=== PATIENT | male | born 1975 | race Caucasian/White ===

== ENCOUNTER 2025-04-04 10:50 | Inpatient (IN) | payer MEDICAID ==
[~2025-04-04] VITALS: Ht 134.6 cm; Wt 99.8 kg
[2025-04-04 10:56] VITALS: O2SAT 97
[2025-04-04] MEDS: ONDANSETRON HCL 4MG/2ML INJ IV ONE (11:30)
[2025-04-04] MEDS: PANTOPRAZOLE SODIUM 40 MG/VIAL IV ONE (11:30)
[2025-04-04] MEDS: SODIUM CHLORIDE 0.9% 1,000 ML IV ONE (11:31)
[2025-04-04 11:37] LABS: HEMATOCRIT. 21.1 % (42.0-52.0); MEAN PLATELET VOLUME 8.0 fl (7.4-10.4); PLATELET 173 x1000/uL (130-400); RED BLOOD CELL COUNT 2.31 mill/uL (4.7-6.1); RED CELL DISTRIBUTION WIDTH 22.5 % (11.6-14.6)
[2025-04-04 11:46] LABS: INR 2.2
[2025-04-04 11:51] LABS: CREATININE 3.5 mg/dL (0.6-1.3); UREA NITROGEN BLOOD 86 mg/dL (9-23)
[2025-04-04 11:52] LABS: TROPONIN I HIGH SENSITIVITY 6 ng/L (3.0-53)
[2025-04-04 11:53] LABS: ASPARTATE AMINOTRANSFERASE 230 IU/L (<34); BILIRUBIN DIRECT 12.8 mg/dL (<=3.0); HEMOGLOBIN. 7.0 g/dL (14.0-18.0)
[2025-04-04 11:54] LABS: BILIRUBIN TOTAL 16.3 mg/dL (0.1-1.0); PROTEIN TOTAL 5.6 g/dL (6.0-8.3)
[2025-04-04 12:43] LABS: BAND% 6.0 % (1.0-6.0); EOSINOPHILS % MANUAL 2.0 % (0.0-5.0); LYMPHOCYTES % MANUAL 5.0 % (20.0-50.0); MONOCYTES % MANUAL 9.0 % (2.0-8.0); NEUTROPHILS % MANUAL 78.0 % (45.0-75.0); PLATELET ESTIMATE NORMAL
[2025-04-04] MEDS ORDERED: LORAZEPAM 0.5MG TABLET PO PRN (15:15)
[2025-04-04] MEDS ORDERED: ACETAMINOPHEN 325MG TABLET PO PRN (15:30)
[2025-04-04] MEDS ORDERED: DOCUSATE SODIUM 100MG CAPSULE PO PRN (15:30)
[2025-04-04] MEDS ORDERED: IPRATROPIUM/ALBUTEROL 0.5-3(2.5)MG/3ML NEB HHN PRN (15:30)
[2025-04-04] MEDS ORDERED: CLONIDINE 0.1MG TABLET PO PRN (15:30)
[2025-04-04] MEDS ORDERED: ONDANSETRON HCL 4MG/2ML INJ IV PRN (15:30)
[2025-04-04] MEDS ORDERED: HYDROCODONE/ACETAMINOPHEN 5/325MG TABLET PO PRN (15:30)
[2025-04-04 15:40] VITALS: BP 90/56; PULSE 90; RESP 18; TEMP 35.8; O2SAT 97
[2025-04-04] MEDS ORDERED: NALOXONE HCL 0.4MG/ML VIAL IV PRN (15:45)
[2025-04-04 15:54] VITALS: BP 90/56; PULSE 90; RESP 18; TEMP 35.862
[2025-04-04] MEDS ORDERED: MULT-1146 MT (16:14)
[2025-04-04] MEDS: PANTOPRAZOLE SODIUM 40 MG/VIAL IV SCH (16:21)
[2025-04-04] MEDS: SODIUM CHLORIDE 0.9% 1,000 ML IV SCH (16:21)
[2025-04-04] MEDS: THIAMINE HCL 100MG TABLET PO SCH (17:15)
[2025-04-04] MEDS: MULTIVITAMINS,THER W-MINERALS TABLET PO SCH (17:15)
[2025-04-04 18:09] LABS: FOLIC ACID (FOLATE) SERUM 5.37 ng/mL (>5.38)
[2025-04-04 18:12] LABS: VITAMIN B12 SERUM > 2000 pg/mL (211-911)
[2025-04-04 18:37] LABS: HEPATITIS C AB NON REACTIVE (Neg) (Negative)
[2025-04-04 20:00] VITALS: BP 98/63; PULSE 87; RESP 18; TEMP 36.4; O2SAT 99
[2025-04-04] MEDS: CHLORDIAZEPOXIDE 25MG CAPSULE PO SCH (21:15)
[2025-04-04] MEDS ORDERED: CHLORDIAZEPOXIDE 25MG CAPSULE PO SCH (22:00)
[2025-04-04 22:07] LABS: TROPONIN I HIGH SENSITIVITY 4 ng/L (3.0-53)
[2025-04-05] VITALS (11 sets, daily range): BP systolic 95–138; BP diastolic 48–86; PULSE 76–95; RESP 18–20; TEMP 36.114–37; O2SAT 93–100
[2025-04-05 09:05] LABS: CLARITY URINE CLOUDY (CLEAR); COLOR URINE DARK YELLOW (YELLOW); GLUCOSE URINE NEGATIVE (NEGATIVE); KETONES URINE NEGATIVE (NEGATIVE); LEUKOCYTE ESTERASE URINE TRACE (NEGATIVE); NITRITE URINE NEGATIVE (NEGATIVE); OCCULT BLOOD URINE NEGATIVE (NEGATIVE); PH URINE 5.5 (4.5-8.0); PROTEIN URINE NEGATIVE (NEGATIVE); SPECIFIC GRAVITY URINE 1.016 (1.005-1.030); UROBILINOGEN URINE 1.0 E.U./dL (0.2-1.0)
[2025-04-05] MEDS: FOLIC ACID 1MG TABLET PO SCH (09:22)
[2025-04-05 09:43] LABS: SQUAMOUS EPITHELIAL CELL URINE 1+ /lpf (RARE/1+)
[2025-04-05] MEDS ORDERED: PATIENT'S OWN MEDICATION IV SCH (09:45)
[2025-04-05 09:46] LABS: RBC URINE 0-2 /hpf (0-2); WBC URINE 0-2 /hpf (0-2)
[2025-04-05 09:55] LABS: BACTERIA URINE TRACE; HYALINE CASTS URINE 0-5 /lpf
[2025-04-05 10:26] LABS: *AMPHETAMINES SCREEN URINE NEGATIVE (NEGATIVE); *BARBITURATES SCREEN URINE NEGATIVE (NEGATIVE); *BENZODIAZEPINES SCREEN URINE NEGATIVE (NEGATIVE); *COCAINE SCREEN URINE NEGATIVE (NEGATIVE); METHADONE URINE SCREEN NEGATIVE (NEGATIVE); OPIATES URINE SCREEN NEGATIVE (NEGATIVE); PHENCYCLIDINE URINE SCREEN NEGATIVE (NEGATIVE)
[2025-04-05 10:27] LABS: CANNABINOID URINE SCREEN NEGATIVE (NEGATIVE); ECSTASY MDMA SCREEN URINE NEGATIVE (NEGATIVE)
[2025-04-05 10:33] LABS: OSMOLALITY URINE 370 mOsm/kg (500-850)
[2025-04-05 10:38] LABS: SODIUM URINE RANDOM < 10 mEq/L
[2025-04-05] MEDS: IRON SUCROSE COMPLEX 100 MG/5 ML ML IV SCH (10:46)
[2025-04-05 13:20] LABS: MEAN PLATELET VOLUME 7.9 fl (7.4-10.4); PLATELET 161 x1000/uL (130-400); RED BLOOD CELL COUNT 2.28 mill/uL (4.7-6.1); RED CELL DISTRIBUTION WIDTH 22.4 % (11.6-14.6)
[2025-04-05] MEDS: PHYTONADIONE 10 MG in DEXTROSE 5% WATER 49 ML IV NR (13:26)
[2025-04-05 13:27] LABS: CREATININE 3.7 mg/dL (0.6-1.3); UREA NITROGEN BLOOD 96.0 mg/dL (9-23)
[2025-04-05 13:37] LABS: HEMATOCRIT. 20.5 % (42.0-52.0); HEMOGLOBIN. 6.8 g/dL (14.0-18.0)
[2025-04-05] MEDS: LACTULOSE 20G/30ML UDC PO SCH (18:28)
[2025-04-05] MEDS: RIFAXIMIN 550 MG TABLET PO SCH (21:04)
[2025-04-05 23:25] LABS: BAND% 4.0 % (1.0-6.0); EOSINOPHILS % MANUAL 3.0 % (0.0-5.0); LYMPHOCYTES % MANUAL 5.0 % (20.0-50.0); MONOCYTES % MANUAL 16.0 % (2.0-8.0); NEUTROPHILS % MANUAL 72.0 % (45.0-75.0); NUCLEATED RED BLOOD CELLS 1 /100 WBC; PLATELET ESTIMATE NORMAL
[2025-04-06] VITALS (17 sets, daily range): BP systolic 92–130; BP diastolic 51–74; PULSE 50–86; RESP 16–20; TEMP 35.89176–37.2; O2SAT 95–98
[2025-04-06] MEDS: OCTREOTIDE 1,000 MCG in SODIUM CHLORIDE 0.9% 98 ML IV SCH (00:28)
[2025-04-06 03:02] LABS: HEMATOCRIT. 23.7 % (42.0-52.0); HEMOGLOBIN. 7.7 g/dL (14.0-18.0); MEAN PLATELET VOLUME 8.2 fl (7.4-10.4); PLATELET 152 x1000/uL (130-400); RED BLOOD CELL COUNT 2.64 mill/uL (4.7-6.1); RED CELL DISTRIBUTION WIDTH 20.8 % (11.6-14.6)
[2025-04-06 03:13] LABS: CREATININE 3.9 mg/dL (0.6-1.3); UREA NITROGEN BLOOD 93 mg/dL (9-23)
[2025-04-06 03:15] LABS: ASPARTATE AMINOTRANSFERASE 196 IU/L (<34); BILIRUBIN DIRECT 12.6 mg/dL (<=3.0); BILIRUBIN TOTAL 18.9 mg/dL (0.1-1.0)
[2025-04-06 03:16] LABS: INR 2.0; PROTEIN TOTAL 5.4 g/dL (6.0-8.3)
[2025-04-06 04:19] LABS: LYMPHOCYTES % MANUAL 4.0 % (20.0-50.0); MONOCYTES % MANUAL 13.0 % (2.0-8.0); NEUTROPHILS % MANUAL 83.0 % (45.0-75.0); PLATELET ESTIMATE NORMAL
[2025-04-06] MEDS: DEMECLOCYCLINE HCL 300MG TABLET PO SCH (14:09)
[2025-04-06] MEDS: PHYTONADIONE 10 MG in DEXTROSE 5% WATER 49 ML IV NR (21:05)
[2025-04-07] VITALS: BP 106/57; PULSE 80; RESP 18; TEMP 36.3; O2SAT 98
[2025-04-07 04:00] VITALS: BP 101/52; PULSE 87; RESP 18; TEMP 36.4; O2SAT 95
[2025-04-07 05:27] LABS: CREATININE 3.4 mg/dL (0.6-1.3); INR 1.7; UREA NITROGEN BLOOD 87.0 mg/dL (9-23)
[2025-04-07 05:29] LABS: BILIRUBIN TOTAL 19.3 mg/dL (0.1-1.0)
[2025-04-07 06:29] LABS: HEMATOCRIT. 24.8 % (42.0-52.0); HEMOGLOBIN. 8.3 g/dL (14.0-18.0); MEAN PLATELET VOLUME 8.6 fl (7.4-10.4); PLATELET 150 x1000/uL (130-400); RED BLOOD CELL COUNT 2.76 mill/uL (4.7-6.1); RED CELL DISTRIBUTION WIDTH 21.3 % (11.6-14.6)
[2025-04-07 08:00] VITALS: BP 97/59; PULSE 85; RESP 18; TEMP 36.2; O2SAT 95
[2025-04-07 12:00] VITALS: BP 100/56; PULSE 94; RESP 16; TEMP 36.1; O2SAT 96
[2025-04-07] MEDS: PIPERACILLIN/TAZO 3.375G/50ML 50 ML IV SCH (12:45)
[2025-04-07] MEDS: VANCOMYCIN 1.5GM PMX (XELLIA) 300 ML IV NR (14:51)
[2025-04-07 16:00] VITALS: BP 98/56; PULSE 98; RESP 17; TEMP 36.3; O2SAT 98
[2025-04-07 17:13] LABS: BAND% 1.0 % (1.0-6.0); EOSINOPHILS % MANUAL 1.0 % (0.0-5.0); LYMPHOCYTES % MANUAL 7.0 % (20.0-50.0); MONOCYTES % MANUAL 8.0 % (2.0-8.0); NEUTROPHILS % MANUAL 83.0 % (45.0-75.0); PLATELET ESTIMATE NORMAL
[2025-04-07 20:00] VITALS: BP 98/55; PULSE 88; RESP 19; TEMP 36.6; O2SAT 96
[2025-04-07 23:33] LABS: CLARITY URINE CLOUDY (CLEAR); COLOR URINE DARK YELLOW (YELLOW); GLUCOSE URINE NEGATIVE (NEGATIVE); KETONES URINE NEGATIVE (NEGATIVE); LEUKOCYTE ESTERASE URINE NEGATIVE (NEGATIVE); NITRITE URINE NEGATIVE (NEGATIVE); OCCULT BLOOD URINE NEGATIVE (NEGATIVE); PH URINE 5.5 (4.5-8.0); PROTEIN URINE TRACE (NEGATIVE); SPECIFIC GRAVITY URINE 1.015 (1.005-1.030); UROBILINOGEN URINE 0.2 E.U./dL (0.2-1.0)
[2025-04-08] VITALS: BP 98/50; PULSE 88; RESP 19; TEMP 36.4; O2SAT 95
[2025-04-08 02:58] LABS: SQUAMOUS EPITHELIAL CELL URINE FEW /lpf (RARE/1+)
[2025-04-08 03:00] LABS: BACTERIA URINE NONE SEEN; RBC URINE NONE SEEN /hpf (0-2); WBC URINE 0-2 /hpf (0-2)
[2025-04-08 04:00] VITALS: BP 97/51; PULSE 90; RESP 19; TEMP 36.6; O2SAT 98
[2025-04-08 06:05] LABS: INR 2.1
[2025-04-08 06:13] LABS: CREATININE 3.6 mg/dL (0.6-1.3); UREA NITROGEN BLOOD 94 mg/dL (9-23)
[2025-04-08 06:15] LABS: ASPARTATE AMINOTRANSFERASE 172 IU/L (<34); BILIRUBIN TOTAL 17.7 mg/dL (0.1-1.0); PROTEIN TOTAL 5.6 g/dL (6.0-8.3)
[2025-04-08 06:36] LABS: HEMATOCRIT. 23.7 % (42.0-52.0); HEMOGLOBIN. 7.8 g/dL (14.0-18.0); MEAN PLATELET VOLUME 8.6 fl (7.4-10.4); PLATELET 136 x1000/uL (130-400); RED BLOOD CELL COUNT 2.65 mill/uL (4.7-6.1); RED CELL DISTRIBUTION WIDTH 21.9 % (11.6-14.6)
[2025-04-08 08:00] VITALS: BP 95/50; PULSE 87; RESP 17; TEMP 36.4; O2SAT 100
[2025-04-08 11:11] LABS: BG BASE EXCESS -5.4 mmol/L (-2.0-3.0); BG CARBOXYHEMOGLOBIN 1.8 % (0.5-1.5); BG DEOXYHEMOGLOBIN 6.1 % (0.0-5.0); BG FRACTION INSPIRED OXYGEN 21; BG HCO3 ACT 19.1 mmol/L (21.0-28.0); BG METHEMOGLOBIN 0.3 % (0.5-1.5); BG OXYGEN SATURATION 93.8 % (94.0-98.0); BG OXYHEMOGLOBIN 91.8 % (94.0-98.0); BG PCO2 33.3 mmHg (35.0-48.0); BG PH 7.377 (7.350-7.450); BG PO2 74.8 mmHg (83.0-108.0); BG SAMPLE SITE RIGHT RADIAL; BG TOTAL HEMOGLOBIN 9.1 g/dL (13.5-17.5); BG VENT MODE ROOM AIR
[2025-04-08 12:00] VITALS: BP 97/57; PULSE 91; RESP 18; TEMP 36.4; O2SAT 100
[2025-04-08 13:54] LABS: BAND% 20.0 % (1.0-6.0); EOSINOPHILS % MANUAL 1.0 % (0.0-5.0); LYMPHOCYTES % MANUAL 1.0 % (20.0-50.0); MONOCYTES % MANUAL 5.0 % (2.0-8.0); NEUTROPHILS % MANUAL 73.0 % (45.0-75.0); PLATELET ESTIMATE NORMAL
[2025-04-08 16:00] VITALS: BP 97/49; PULSE 90; RESP 18; TEMP 36.4; O2SAT 98
[2025-04-08 18:07] LABS: PLATELET 132 x1000/uL (130-400); RED BLOOD CELL COUNT 2.88 mill/uL (4.7-6.1); RED CELL DISTRIBUTION WIDTH 21.4 % (11.6-14.6)
[2025-04-08 18:16] LABS: CREATININE 3.9 mg/dL (0.6-1.3)
[2025-04-08 18:17] LABS: UREA NITROGEN BLOOD 94.0 mg/dL (9-23)
[2025-04-08 20:47] VITALS: BP 98/53; PULSE 82; RESP 20; TEMP 36.6; O2SAT 96
[2025-04-08] MEDS: ACETAMINOPHEN 325MG TABLET PO PRN (21:12)
[2025-04-08] MEDS: SODIUM CHLORIDE 3% 500 ML IV SCH (21:13)
[2025-04-09] VITALS (8 sets, daily range): BP systolic 94–108; BP diastolic 46–68; PULSE 80–98; RESP 16–23; TEMP 35.9–37; O2SAT 86–100
[2025-04-09 08:55] LABS: HEMATOCRIT. 26.0 % (42.0-52.0); HEMOGLOBIN. 8.6 g/dL (14.0-18.0); MEAN PLATELET VOLUME 8.7 fl (7.4-10.4); PLATELET 136 x1000/uL (130-400); RED BLOOD CELL COUNT 2.87 mill/uL (4.7-6.1); RED CELL DISTRIBUTION WIDTH 22.3 % (11.6-14.6)
[2025-04-09 09:12] LABS: CREATININE 4.5 mg/dL (0.6-1.3)
[2025-04-09 09:24] LABS: UREA NITROGEN BLOOD 103.0 mg/dL (9-23)
[2025-04-09 13:40] LABS: BAND% 10.0 % (1.0-6.0); LYMPHOCYTES % MANUAL 1.0 % (20.0-50.0); METAMYELOCYTES % 1.0 % (0-0); MONOCYTES % MANUAL 6.0 % (2.0-8.0); NEUTROPHILS % MANUAL 82.0 % (45.0-75.0); NUCLEATED RED BLOOD CELLS 1 /100 WBC
[2025-04-09 13:42] LABS: PLATELET ESTIMATE NORMAL
[2025-04-09] MEDS: MEROPENEM 500MG/50ML 50 ML IV SCH (18:23)
[2025-04-09] MEDS: VANCOMYCIN 500MG/100ML IV SCH (22:00)
[2025-04-09 23:33] LABS: BG BASE EXCESS -6.2 mmol/L (-2.0-3.0); BG CARBOXYHEMOGLOBIN 2.3 % (0.5-1.5); BG DEOXYHEMOGLOBIN 8.7 % (0.0-5.0); BG FRACTION INSPIRED OXYGEN 21; BG HCO3 ACT 18.2 mmol/L (21.0-28.0); BG METHEMOGLOBIN 0.3 % (0.5-1.5); BG OXYGEN SATURATION 91.1 % (94.0-98.0); BG OXYHEMOGLOBIN 88.7 % (94.0-98.0); BG PCO2 32.1 mmHg (35.0-48.0); BG PH 7.372 (7.350-7.450); BG PO2 66.3 mmHg (83.0-108.0); BG SAMPLE SITE RIGHT RADIAL; BG TOTAL HEMOGLOBIN 9.6 g/dL (13.5-17.5); BG VENT MODE ROOM AIR
[2025-04-10] VITALS (12 sets, daily range): BP systolic 99–113; BP diastolic 56–63; PULSE 94–104; RESP 12–30; TEMP 35.8–36.6; O2SAT 94–100
[2025-04-10 08:40] LABS: UREA NITROGEN BLOOD 116.0 mg/dL (9-23)
[2025-04-10 08:41] LABS: CREATININE 5.5 mg/dL (0.6-1.3)
[2025-04-10 09:04] LABS: HEMATOCRIT. 27.4 % (42.0-52.0); HEMOGLOBIN. 9.0 g/dL (14.0-18.0); MEAN PLATELET VOLUME 8.8 fl (7.4-10.4); PLATELET 135 x1000/uL (130-400); RED BLOOD CELL COUNT 3.01 mill/uL (4.7-6.1); RED CELL DISTRIBUTION WIDTH 22.1 % (11.6-14.6)
[2025-04-10] MEDS: SODIUM CHLORIDE 0.9% 1,000 ML IV SCH (11:09)
[2025-04-10 16:35] LABS: LYMPHOCYTES % MANUAL 5.0 % (20.0-50.0); MONOCYTES % MANUAL 10.0 % (2.0-8.0); NEUTROPHILS % MANUAL 85.0 % (45.0-75.0); PLATELET ESTIMATE NORMAL
[2025-04-10] MEDS ORDERED: ACETAMINOPHEN 650MG SUPP PR PRN ×2 (22:15→22:30)
[2025-04-11] VITALS (58 sets, daily range): BP systolic 93–140; BP diastolic 18–79; PULSE 86–109; RESP 15–37; TEMP 36.2–36.7; O2SAT 93–99
[2025-04-11] MEDS: DEXTROSE 50% WATER 50ML SYRINGE IV PRN (05:40)
[2025-04-11 06:42] LABS: ASPARTATE AMINOTRANSFERASE 223 IU/L (<34)
[2025-04-11 06:43] LABS: BILIRUBIN TOTAL 21.8 mg/dL (0.1-1.0); PROTEIN TOTAL 5.5 g/dL (6.0-8.3)
[2025-04-11 06:49] LABS: HEMATOCRIT. 27.3 % (42.0-52.0); HEMOGLOBIN. 8.9 g/dL (14.0-18.0); MEAN PLATELET VOLUME 8.5 fl (7.4-10.4); PLATELET 102 x1000/uL (130-400); RED BLOOD CELL COUNT 2.98 mill/uL (4.7-6.1); RED CELL DISTRIBUTION WIDTH 22.3 % (11.6-14.6)
[2025-04-11 07:09] LABS: CREATININE 6.5 mg/dL (0.6-1.3); UREA NITROGEN BLOOD 134 mg/dL (9-23)
[2025-04-11] MEDS: BLOOD SUGAR DIAGNOSTIC STRIP TEST SCH (07:30)
[2025-04-11 08:43] LABS: INR 2.6
[2025-04-11] MEDS: SODIUM BICARBONATE 4.2% 2.5MEQ/5ML VIAL IV ONE (10:31)
[2025-04-11] MEDS: LIDOCAINE HCL 1% 10 MG/ML 10ML VIAL ONE (10:32)
[2025-04-11] MEDS: NOREPINEPHRINE 8MG/250ML PMX 250 ML IV PRN (11:56)
[2025-04-11 12:26] LABS: PROTEIN BODY FLUID < 2.0 gm/dL
[2025-04-11] MEDS: PHYTONADIONE 10MG/ML INJ SUBCUT SCH (13:10)
[2025-04-11] MEDS: SODIUM BICARBONATE 100 MEQ in SODIUM CHLORIDE 0.45% 900 ML IV SCH (13:10)
[2025-04-11] MEDS ORDERED: LIDOCAINE HCL 1% 10 MG/ML 10ML VIAL ONE (13:44)
[2025-04-11] MEDS: PHENYLEPHRINE 50MG/250ML PMX 250 ML IV PRN (16:03)
[2025-04-11 17:23] LABS: LYMPHOCYTES % MANUAL 6.0 % (20.0-50.0); METAMYELOCYTES % 2.0 % (0-0); MONOCYTES % MANUAL 12.0 % (2.0-8.0); MYELOCYTES % 2.0 % (0-0); NEUTROPHILS % MANUAL 78.0 % (45.0-75.0); PLATELET ESTIMATE SLIGHTLY DECREASED
[2025-04-11 22:30] LABS: PHOSPHORUS 12.2 mg/dL (2.5-4.9); TROPONIN I HIGH SENSITIVITY 207 ng/L (3.0-53)
[2025-04-11] MEDS: NOREPINEPHRINE 32 MG in DEXT 5% WATER 218 ML IV PRN (23:15)
[2025-04-12] VITALS (95 sets, daily range): BP systolic 67–109; BP diastolic 39–82; PULSE 77–99; RESP 20–53; TEMP 36.6–37.2; O2SAT 94–100
[2025-04-12 06:40] LABS: HEMATOCRIT. 26.7 % (42.0-52.0); HEMOGLOBIN. 8.4 g/dL (14.0-18.0); MEAN PLATELET VOLUME 9.0 fl (7.4-10.4); PLATELET 79 x1000/uL (130-400); RED BLOOD CELL COUNT 2.85 mill/uL (4.7-6.1); RED CELL DISTRIBUTION WIDTH 22.4 % (11.6-14.6)
[2025-04-12 06:53] LABS: ASPARTATE AMINOTRANSFERASE 365 IU/L (<34)
[2025-04-12 06:54] LABS: BILIRUBIN TOTAL 22.1 mg/dL (0.1-1.0)
[2025-04-12 07:10] LABS: CREATININE 7.5 mg/dL (0.6-1.3)
[2025-04-12 07:11] LABS: UREA NITROGEN BLOOD 138 mg/dL (9-23)
[2025-04-12 07:20] LABS: PROTEIN TOTAL 5.3 g/dL (6.0-8.3)
[2025-04-12 07:27] LABS: TROPONIN I HIGH SENSITIVITY 181 ng/L (3.0-53)
[2025-04-12] MEDS: LANTHANUM CARBONATE 500MG CHEW TABLET PO SCH (08:20)
[2025-04-12] MEDS: PHYTONADIONE 10 MG in DEXTROSE 5% WATER 50 ML IV SCH (09:43)
[2025-04-12 10:30] LABS: BG BASE EXCESS -11.3 mmol/L (-2.0-3.0); BG CARBOXYHEMOGLOBIN 1.6 % (0.5-1.5); BG DEOXYHEMOGLOBIN 6.5 % (0.0-5.0); BG FLOW(L/min) 3.50 L/min; BG FRACTION INSPIRED OXYGEN 34; BG HCO3 ACT 13.7 mmol/L (21.0-28.0); BG METHEMOGLOBIN 0.3 % (0.5-1.5); BG OXYGEN SATURATION 93.4 % (94.0-98.0); BG OXYHEMOGLOBIN 91.6 % (94.0-98.0); BG PCO2 27.5 mmHg (35.0-48.0); BG PH 7.314 (7.350-7.450); BG PO2 78.4 mmHg (83.0-108.0); BG SAMPLE SITE RIGHT RADIAL; BG TOTAL HEMOGLOBIN 9.3 g/dL (13.5-17.5); BG VENT MODE NASAL CANNULA
[2025-04-12 11:34] LABS: INR > 10.0
[2025-04-12 12:13] LABS: BAND% 6.0 % (1.0-6.0); LYMPHOCYTES % MANUAL 2.0 % (20.0-50.0); MONOCYTES % MANUAL 4.0 % (2.0-8.0); NEUTROPHILS % MANUAL 88.0 % (45.0-75.0); NUCLEATED RED BLOOD CELLS 4 /100 WBC
[2025-04-12 12:17] LABS: PLATELET ESTIMATE DECREASED
[2025-04-12] MEDS ORDERED: LACTULOSE ENEMA 1,000ML BOTTLE PR NR (12:30)
[2025-04-12] MEDS: MICAFUNGIN 100 MG in SODIUM CHLORIDE 0.9% 100 ML IV SCH (17:27)
[2025-04-12] MEDS ORDERED: VANCOMYCIN 500MG PREMIX 100 ML IV SCH (18:00)
[2025-04-12 20:21] LABS: TROPONIN I HIGH SENSITIVITY 96 ng/L (3.0-53)
[2025-04-12] MEDS: RIFAXIMIN 550 MG TABLET NG SCH (21:37)
[2025-04-13] VITALS (114 sets, daily range): BP systolic 69–176; BP diastolic 12–146; PULSE 77–113; RESP 18–33; TEMP 36.4–37.2; O2SAT 95–100
[2025-04-13] MEDS: MEROPENEM 500MG/50ML 50 ML IV SCH (05:16)
[2025-04-13 07:07] LABS: BILIRUBIN TOTAL 21.9 mg/dL (0.1-1.0)
[2025-04-13 07:32] LABS: HEMATOCRIT. 30.0 % (42.0-52.0); HEMOGLOBIN. 9.6 g/dL (14.0-18.0); RED BLOOD CELL COUNT 2.98 mill/uL (4.7-6.1); RED CELL DISTRIBUTION WIDTH 23.6 % (11.6-14.6)
[2025-04-13 07:44] LABS: CREATININE 7.2 mg/dL (0.6-1.3); UREA NITROGEN BLOOD 132.0 mg/dL (9-23)
[2025-04-13] MEDS: EPINEPHRINE 0.1MG/ML (1:10,000) 10ML SYR IV NR (07:45)
[2025-04-13] MEDS: PANTOPRAZOLE SODIUM 40 MG/VIAL IV SCH ×2 (08:24→21:10)
[2025-04-13] MEDS: DEXTROSE 50% WATER 50ML SYRINGE IV NR (08:44)
[2025-04-13] MEDS: SODIUM POLYSTYRENE SULFONATE 15 G/60 ML BOT NG NR (08:44)
[2025-04-13] MEDS: INSULIN REGULAR (HUMULIN R) 1000UNITS/10ML VIAL IV NR (08:45)
[2025-04-13 09:37] LABS: BG BASE EXCESS -15.7 mmol/L (-2.0-3.0); BG CARBOXYHEMOGLOBIN 1.7 % (0.5-1.5); BG DEOXYHEMOGLOBIN 4.7 % (0.0-5.0); BG FRACTION INSPIRED OXYGEN 80; BG HCO3 ACT 10.9 mmol/L (21.0-28.0); BG METHEMOGLOBIN 0.3 % (0.5-1.5); BG OXYGEN SATURATION 95.2 % (94.0-98.0); BG OXYHEMOGLOBIN 93.3 % (94.0-98.0); BG PCO2 28.4 mmHg (35.0-48.0); BG PEEP (cmH2O) 5.0 cmH2O; BG PH 7.201 (7.350-7.450); BG PO2 95.8 mmHg (83.0-108.0); BG SAMPLE SITE RIGHT RADIAL; BG TIDAL VOLUME(mL) 450.0 mL; BG TOTAL HEMOGLOBIN 9.3 g/dL (13.5-17.5); BG VENT MODE VENT - AC; BG VENT RATE 28.0 set
[2025-04-13] MEDS: SODIUM BICARBONATE 150 MEQ in DEXTROSE 5% WATER 850 ML IV SCH (11:43)
[2025-04-13] MEDS: SODIUM BICARBONATE 8.4% 50MEQ/50ML SYR IV SCH (12:04)
[2025-04-13 12:56] LABS: INR > 10.0
[2025-04-13] MEDS: LACTULOSE 20G/30ML UDC PO SCH (13:37)
[2025-04-13 14:03] LABS: BAND% 10.0 % (1.0-6.0); LYMPHOCYTES % MANUAL 2.0 % (20.0-50.0); METAMYELOCYTES % 1.0 % (0-0); MONOCYTES % MANUAL 9.0 % (2.0-8.0); MYELOCYTES % 1.0 % (0-0); NEUTROPHILS % MANUAL 77.0 % (45.0-75.0); NUCLEATED RED BLOOD CELLS 8 /100 WBC
[2025-04-13 14:06] LABS: PLATELET ESTIMATE DECREASED
[2025-04-13 14:09] LABS: MEAN PLATELET VOLUME 9.8 fl (7.4-10.4); PLATELET 81 x1000/uL (130-400)
[2025-04-13 17:49] LABS: BG BASE EXCESS -12.9 mmol/L (-2.0-3.0); BG CARBOXYHEMOGLOBIN 1.1 % (0.5-1.5); BG DEOXYHEMOGLOBIN 16.4 % (0.0-5.0); BG FRACTION INSPIRED OXYGEN 70; BG HCO3 ACT 12.1 mmol/L (21.0-28.0); BG METHEMOGLOBIN 0.3 % (0.5-1.5); BG OXYGEN SATURATION 83.4 % (94.0-98.0); BG OXYHEMOGLOBIN 82.2 % (94.0-98.0); BG PCO2 25.7 mmHg (35.0-48.0); BG PEEP (cmH2O) 5.0 cmH2O; BG PH 7.291 (7.350-7.450); BG PO2 59.2 mmHg (83.0-108.0); BG SAMPLE SITE RIGHT RADIAL; BG TIDAL VOLUME(mL) 450.0 mL; BG TOTAL HEMOGLOBIN 10.5 g/dL (13.5-17.5); BG VENT MODE VENT - AC; BG VENT RATE 32.0 set
[2025-04-13] MEDS: VANCOMYCIN 125MG/2.5ML ORAL SYR NG SCH (21:24)
[2025-04-14] VITALS (113 sets, daily range): BP systolic 82–115; BP diastolic 44–73; PULSE 81–118; RESP 23–36; TEMP 36.1–36.6; O2SAT 94–100
[2025-04-14] MEDS: VASOPRESSIN 20 UNIT in SODIUM CHLORIDE 0.9% 99 ML IV PRN (06:26)
[2025-04-14 08:21] LABS: RED BLOOD CELL COUNT 2.90 mill/uL (4.7-6.1); RED CELL DISTRIBUTION WIDTH 27.4 % (11.6-14.6)
[2025-04-14 08:47] LABS: BG BASE EXCESS -8.4 mmol/L (-2.0-3.0); BG CARBOXYHEMOGLOBIN 1.7 % (0.5-1.5); BG DEOXYHEMOGLOBIN 9.0 % (0.0-5.0); BG FRACTION INSPIRED OXYGEN 70; BG HCO3 ACT 14.9 mmol/L (21.0-28.0); BG METHEMOGLOBIN 0.1 % (0.5-1.5); BG OXYGEN SATURATION 90.8 % (94.0-98.0); BG OXYHEMOGLOBIN 89.2 % (94.0-98.0); BG PCO2 24.1 mmHg (35.0-48.0); BG PEEP (cmH2O) 5.0 cmH2O; BG PH 7.408 (7.350-7.450); BG PO2 72.6 mmHg (83.0-108.0); BG SAMPLE SITE RIGHT RADIAL; BG TIDAL VOLUME(mL) 450.0 mL; BG TOTAL HEMOGLOBIN 9.8 g/dL (13.5-17.5); BG VENT MODE VENT - AC; BG VENT RATE 32.0 set
[2025-04-14 08:49] LABS: CREATININE 7.3 mg/dL (0.6-1.3); UREA NITROGEN BLOOD > 150 mg/dL (9-23)
[2025-04-14 08:50] LABS: PHOSPHORUS 13.0 mg/dL (2.5-4.9)
[2025-04-14] MEDS: IPRATROPIUM/ALBUTEROL 0.5-3(2.5)MG/3ML NEB HHN PRN (09:09)
[2025-04-14] MEDS: LACTULOSE 20G/30ML UDC PO SCH (12:25)
[2025-04-14] MEDS: ACETAZOLAMIDE SODIUM 500MG/VIAL IV NR (12:26)
[2025-04-14 14:19] LABS: PLATELET 57 x1000/uL (130-400)
[2025-04-14] MEDS: FENTANYL 2500MCG/250ML PMX 250 ML IV PRN (21:21)
[2025-04-15] VITALS (116 sets, daily range): BP systolic 70–126; BP diastolic 30–88; PULSE 89–106; RESP 20–34; TEMP 36.2–36.6; O2SAT 92–100
[2025-04-15 10:12] LABS: BG BASE EXCESS -9.3 mmol/L (-2.0-3.0); BG CARBOXYHEMOGLOBIN 2.4 % (0.5-1.5); BG DEOXYHEMOGLOBIN 13.6 % (0.0-5.0); BG FRACTION INSPIRED OXYGEN 50; BG HCO3 ACT 14.8 mmol/L (21.0-28.0); BG METHEMOGLOBIN 0.4 % (0.5-1.5); BG OXYGEN SATURATION 86.0 % (94.0-98.0); BG OXYHEMOGLOBIN 83.6 % (94.0-98.0); BG PCO2 26.3 mmHg (35.0-48.0); BG PEEP (cmH2O) 5.0 cmH2O; BG PH 7.368 (7.350-7.450); BG PO2 64.2 mmHg (83.0-108.0); BG SAMPLE SITE LEFT RADIAL; BG TIDAL VOLUME(mL) 450.0 mL; BG TOTAL HEMOGLOBIN 8.9 g/dL (13.5-17.5); BG VENT MODE VENT - AC; BG VENT RATE 32.0 set
[2025-04-15] MEDS: LACTULOSE ENEMA 1,000ML BOTTLE PR NR (10:17)
[2025-04-15] MEDS: METOCLOPRAMIDE HCL 10MG/2ML VIAL IV SCH ×2 (10:18→17:35)
[2025-04-15 11:39] LABS: HEMATOCRIT. 25.5 % (42.0-52.0); HEMOGLOBIN. 8.1 g/dL (14.0-18.0); MEAN PLATELET VOLUME 10.4 fl (7.4-10.4); RED BLOOD CELL COUNT 2.72 mill/uL (4.7-6.1); RED CELL DISTRIBUTION WIDTH 23.9 % (11.6-14.6)
[2025-04-15 11:49] LABS: PLATELET 25 x1000/uL (130-400)
[2025-04-15 11:51] LABS: ASPARTATE AMINOTRANSFERASE 764 IU/L (<34); BILIRUBIN DIRECT 13.2 mg/dL (<=3.0); BILIRUBIN TOTAL 20.0 mg/dL (0.1-1.0)
[2025-04-15 11:52] LABS: PROTEIN TOTAL 4.6 g/dL (6.0-8.3)
[2025-04-15 12:27] LABS: UREA NITROGEN BLOOD 132 mg/dL (9-23)
[2025-04-15 12:28] LABS: CREATININE 7.8 mg/dL (0.6-1.3)
[2025-04-15] MEDS: LACTULOSE ENEMA 1,000ML BOTTLE PR SCH (17:34)
[2025-04-15] MEDS: VANCOMYCIN PR SCH (17:35)
[2025-04-15] MEDS: NS PR SCH (17:35)
[2025-04-15] MEDS: AZITHROMYCIN 500MG/250ML 250 ML IV SCH (20:31)
[2025-04-15 20:57] LABS: BG BASE EXCESS -7.6 mmol/L (-2.0-3.0); BG CARBOXYHEMOGLOBIN 1.4 % (0.5-1.5); BG DEOXYHEMOGLOBIN 12.2 % (0.0-5.0); BG FRACTION INSPIRED OXYGEN 60; BG HCO3 ACT 15.7 mmol/L (21.0-28.0); BG METHEMOGLOBIN 0.3 % (0.5-1.5); BG OXYGEN SATURATION 87.6 % (94.0-98.0); BG OXYHEMOGLOBIN 86.1 % (94.0-98.0); BG PCO2 24.8 mmHg (35.0-48.0); BG PEEP (cmH2O) 8.0 cmH2O; BG PH 7.419 (7.350-7.450); BG PO2 59.5 mmHg (83.0-108.0); BG SAMPLE SITE LEFT RADIAL; BG TOTAL HEMOGLOBIN 8.9 g/dL (13.5-17.5); BG VENT MODE VENT - P/C; BG VENT RATE 18.0 set
[2025-04-16] VITALS (111 sets, daily range): BP systolic 48–123; BP diastolic 22–93; PULSE 80–104; RESP 15–37; TEMP 35.6–36.8; O2SAT 81–100
[2025-04-16] MEDS: PHENYLEPHRINE 100 MG in DEXT 5% WATER 240 ML IV PRN (00:14)
[2025-04-16 07:33] LABS: CREATININE 8.2 mg/dL (0.6-1.3); UREA NITROGEN BLOOD 135.0 mg/dL (9-23)
[2025-04-16 08:27] LABS: MEAN PLATELET VOLUME 11.5 fl (7.4-10.4); RED BLOOD CELL COUNT 2.14 mill/uL (4.7-6.1); RED CELL DISTRIBUTION WIDTH 23.8 % (11.6-14.6)
[2025-04-16 08:35] LABS: HEMATOCRIT. 20.7 % (42.0-52.0); HEMOGLOBIN. 6.4 g/dL (14.0-18.0)
[2025-04-16 08:36] LABS: PLATELET 23 x1000/uL (130-400)
[2025-04-16 08:39] LABS: BG BASE EXCESS -8.3 mmol/L (-2.0-3.0); BG CARBOXYHEMOGLOBIN 1.7 % (0.5-1.5); BG DEOXYHEMOGLOBIN 6.9 % (0.0-5.0); BG FRACTION INSPIRED OXYGEN 80; BG HCO3 ACT 15.7 mmol/L (21.0-28.0); BG METHEMOGLOBIN 0.1 % (0.5-1.5); BG OXYGEN SATURATION 93.0 % (94.0-98.0); BG OXYHEMOGLOBIN 91.3 % (94.0-98.0); BG PCO2 27.1 mmHg (35.0-48.0); BG PEEP (cmH2O) 8.0 cmH2O; BG PH 7.382 (7.350-7.450); BG PIP 26.0 cmH2O; BG PO2 82.0 mmHg (83.0-108.0); BG SAMPLE SITE LEFT RADIAL; BG TOTAL HEMOGLOBIN 8.6 g/dL (13.5-17.5); BG TOTAL RESPIRATORY RATE 31 b/min; BG VENT MODE VENT - P/C; BG VENT RATE 28.0 set
[2025-04-16 08:54] LABS: ASPARTATE AMINOTRANSFERASE 578 IU/L (<34); BILIRUBIN DIRECT 14.7 mg/dL (<=3.0); BILIRUBIN TOTAL 19.1 mg/dL (0.1-1.0); PROTEIN TOTAL 4.5 g/dL (6.0-8.3)
[2025-04-16] MEDS: CALCIUM GLUCONATE 1GM PREMIX 50 ML IV NR (10:16)
[2025-04-16 11:52] LABS: BAND% 20.0 % (1.0-6.0); LYMPHOCYTES % MANUAL 1.0 % (20.0-50.0); MONOCYTES % MANUAL 4.0 % (2.0-8.0); NEUTROPHILS % MANUAL 75.0 % (45.0-75.0); NUCLEATED RED BLOOD CELLS 1 /100 WBC
[2025-04-16 11:55] LABS: PLATELET ESTIMATE MARKEDLY DECREASED
[2025-04-16 12:47] LABS: BAND% 13.0 % (1.0-6.0); BASOPHILS % MANUAL 1.0 % (0.0-2.0); LYMPHOCYTES % MANUAL 3.0 % (20.0-50.0); METAMYELOCYTES % 1.0 % (0-0); MONOCYTES % MANUAL 6.0 % (2.0-8.0); NEUTROPHILS % MANUAL 76.0 % (45.0-75.0); NUCLEATED RED BLOOD CELLS 5 /100 WBC; PLATELET ESTIMATE MARKEDLY DECREASED
[2025-04-16 13:44] LABS: INR 5.3
[2025-04-16 16:45] LABS: HEMATOCRIT. 24.8 % (42.0-52.0); HEMOGLOBIN. 8.0 g/dL (14.0-18.0); MEAN PLATELET VOLUME 9.8 fl (7.4-10.4); RED BLOOD CELL COUNT 2.64 mill/uL (4.7-6.1); RED CELL DISTRIBUTION WIDTH 23.1 % (11.6-14.6)
[2025-04-16 17:25] LABS: PLATELET 19 x1000/uL (130-400)
[2025-04-16] MEDS ORDERED: LACTULOSE 20G/30ML UDC PO SCH (18:00)
[2025-04-16 18:57] LABS: BAND% 4.0 % (1.0-6.0); LYMPHOCYTES % MANUAL 2.0 % (20.0-50.0); MONOCYTES % MANUAL 11.0 % (2.0-8.0); NEUTROPHILS % MANUAL 83.0 % (45.0-75.0); NUCLEATED RED BLOOD CELLS 4 /100 WBC; PLATELET ESTIMATE MARKEDLY DECREASED
[2025-04-17] VITALS (117 sets, daily range): BP systolic 39–129; BP diastolic 23–96; PULSE 15–119; RESP 13–36; TEMP 36.7–37.44744; O2SAT 93–100
[2025-04-17] MEDS: EPINEPHRINE 5 MG in SODIUM CHLORIDE 0.9% 245 ML IV PRN (05:30)
[2025-04-17 05:50] LABS: INR 5.3
[2025-04-17 07:20] LABS: ASPARTATE AMINOTRANSFERASE 472 IU/L (<34); PROTEIN TOTAL 4.4 g/dL (6.0-8.3)
[2025-04-17 07:28] LABS: HEMATOCRIT. 29.0 % (42.0-52.0); HEMOGLOBIN. 9.3 g/dL (14.0-18.0); MEAN PLATELET VOLUME 8.5 fl (7.4-10.4); RED BLOOD CELL COUNT 3.04 mill/uL (4.7-6.1); RED CELL DISTRIBUTION WIDTH 22.2 % (11.6-14.6)
[2025-04-17 07:30] LABS: CREATININE 7.6 mg/dL (0.6-1.3); UREA NITROGEN BLOOD 131 mg/dL (9-23)
[2025-04-17 07:31] LABS: BILIRUBIN TOTAL 16.2 mg/dL (0.1-1.0)
[2025-04-17 07:52] LABS: PLATELET 17 x1000/uL (130-400)
[2025-04-17 08:35] LABS: BG BASE EXCESS -3.6 mmol/L (-2.0-3.0); BG CARBOXYHEMOGLOBIN 1.3 % (0.5-1.5); BG DEOXYHEMOGLOBIN 13.6 % (0.0-5.0); BG FRACTION INSPIRED OXYGEN 80; BG HCO3 ACT 20.6 mmol/L (21.0-28.0); BG METHEMOGLOBIN 0.0 % (0.5-1.5); BG OXYGEN SATURATION 86.2 % (94.0-98.0); BG OXYHEMOGLOBIN 85.1 % (94.0-98.0); BG PCO2 34.0 mmHg (35.0-48.0); BG PEEP (cmH2O) 8.0 cmH2O; BG PH 7.400 (7.350-7.450); BG PIP 26.0 cmH2O; BG PO2 58.5 mmHg (83.0-108.0); BG SAMPLE SITE RIGHT RADIAL; BG TOTAL HEMOGLOBIN 9.7 g/dL (13.5-17.5); BG VENT MODE VENT - P/C; BG VENT RATE 28.0 set
[2025-04-17] MEDS: EPINEPHRINE 10 MG in SODIUM CHLORIDE 0.9% 240 ML IV PRN (08:52)
[2025-04-17] MEDS: HYDROCORTISONE SOD SUCCINATE 100 MG/2 ML VIAL IV SCH (09:20)
[2025-04-17 10:03] LABS: BAND% 9.0 % (1.0-6.0); EOSINOPHILS % MANUAL 1.0 % (0.0-5.0); LYMPHOCYTES % MANUAL 6.0 % (20.0-50.0); METAMYELOCYTES % 1.0 % (0-0); MONOCYTES % MANUAL 4.0 % (2.0-8.0); NEUTROPHILS % MANUAL 79.0 % (45.0-75.0); NUCLEATED RED BLOOD CELLS 3 /100 WBC
[2025-04-17 10:06] LABS: PLATELET ESTIMATE MARKEDLY DECREASED
[2025-04-17] MEDS: EPINEPHRINE 20 MG in SODIUM CHLORIDE 0.9% 480 ML IV PRN (13:45)
[2025-04-17 14:35] LABS: BG BASE EXCESS -9.3 mmol/L (-2.0-3.0); BG CARBOXYHEMOGLOBIN 1.8 % (0.5-1.5); BG DEOXYHEMOGLOBIN 32.8 % (0.0-5.0); BG FRACTION INSPIRED OXYGEN 80; BG HCO3 ACT 16.3 mmol/L (21.0-28.0); BG METHEMOGLOBIN 0.7 % (0.5-1.5); BG OXYGEN SATURATION 66.4 % (94.0-98.0); BG OXYHEMOGLOBIN 64.7 % (94.0-98.0); BG PCO2 34.3 mmHg (35.0-48.0); BG PEEP (cmH2O) 8.0 cmH2O; BG PH 7.295 (7.350-7.450); BG PIP 26.0 cmH2O; BG PO2 44.9 mmHg (83.0-108.0); BG SAMPLE SITE RIGHT RADIAL; BG TOTAL HEMOGLOBIN 9.9 g/dL (13.5-17.5); BG VENT MODE VENT - P/C; BG VENT RATE 28.0 set
[2025-04-17] MEDS: DOPAMINE 800MG PREMIX (DOUBLE) 250 ML IV PRN (15:29)
[2025-04-17] MEDS: SODIUM BICARBONATE 150 MEQ in DEXTROSE 5% WATER 850 ML IV SCH (17:28)
[2025-04-18] VITALS (109 sets, daily range): BP systolic 89–115; BP diastolic 20–87; PULSE 80–102; RESP 0–33; TEMP 34.4–36.4; O2SAT 95–100
[2025-04-18 06:43] LABS: HEMATOCRIT. 25.3 % (42.0-52.0); HEMOGLOBIN. 8.1 g/dL (14.0-18.0); MEAN PLATELET VOLUME 8.9 fl (7.4-10.4); RED BLOOD CELL COUNT 2.65 mill/uL (4.7-6.1); RED CELL DISTRIBUTION WIDTH 21.6 % (11.6-14.6)
[2025-04-18 07:11] LABS: CREATININE 7.2 mg/dL (0.6-1.3)
[2025-04-18 07:15] LABS: UREA NITROGEN BLOOD 121.0 mg/dL (9-23)
[2025-04-18 07:36] LABS: PLATELET 47 x1000/uL (130-400)
[2025-04-18 08:51] LABS: BG BASE EXCESS -10.1 mmol/L (-2.0-3.0); BG CARBOXYHEMOGLOBIN 1.9 % (0.5-1.5); BG DEOXYHEMOGLOBIN 6.7 % (0.0-5.0); BG FRACTION INSPIRED OXYGEN 80; BG HCO3 ACT 15.6 mmol/L (21.0-28.0); BG METHEMOGLOBIN 0.2 % (0.5-1.5); BG OXYGEN SATURATION 93.2 % (94.0-98.0); BG OXYHEMOGLOBIN 91.2 % (94.0-98.0); BG PCO2 33.6 mmHg (35.0-48.0); BG PEEP (cmH2O) 8.0 cmH2O; BG PH 7.286 (7.350-7.450); BG PIP 26.0 cmH2O; BG PO2 79.1 mmHg (83.0-108.0); BG SAMPLE SITE RIGHT RADIAL; BG TOTAL HEMOGLOBIN 8.8 g/dL (13.5-17.5); BG VENT MODE VENT - P/C; BG VENT RATE 28.0 set
[2025-04-18] MEDS: CALCIUM GLUCONATE 100MG/ML 10ML VIAL IV NR ×2 (09:57→12:18)
[2025-04-18] MEDS: LACTULOSE ENEMA 1,000ML BOTTLE PR NR (09:58)
[2025-04-18 13:56] LABS: BAND% 7.0 % (1.0-6.0); EOSINOPHILS % MANUAL 1.0 % (0.0-5.0); LYMPHOCYTES % MANUAL 1.0 % (20.0-50.0); MONOCYTES % MANUAL 3.0 % (2.0-8.0); MYELOCYTES % 1.0 % (0-0); NEUTROPHILS % MANUAL 87.0 % (45.0-75.0); NUCLEATED RED BLOOD CELLS 6 /100 WBC; PLATELET ESTIMATE MARKEDLY DECREASED
[2025-04-19] VITALS (115 sets, daily range): BP systolic 35–114; BP diastolic 20–79; PULSE 90–110; RESP 10–32; TEMP 36.1–37.1; O2SAT 86–100
[2025-04-19 06:22] LABS: HEMATOCRIT. 26.1 % (42.0-52.0); HEMOGLOBIN. 8.3 g/dL (14.0-18.0); MEAN PLATELET VOLUME 9.3 fl (7.4-10.4); RED BLOOD CELL COUNT 2.76 mill/uL (4.7-6.1); RED CELL DISTRIBUTION WIDTH 21.3 % (11.6-14.6)
[2025-04-19 08:12] LABS: CREATININE 7.0 mg/dL (0.6-1.3); UREA NITROGEN BLOOD 115.0 mg/dL (9-23)
[2025-04-19 09:16] LABS: BG BASE EXCESS -9.9 mmol/L (-2.0-3.0); BG CARBOXYHEMOGLOBIN 1.7 % (0.5-1.5); BG DEOXYHEMOGLOBIN 6.5 % (0.0-5.0); BG FRACTION INSPIRED OXYGEN 70; BG HCO3 ACT 15.0 mmol/L (21.0-28.0); BG METHEMOGLOBIN 0.3 % (0.5-1.5); BG OXYGEN SATURATION 93.4 % (94.0-98.0); BG OXYHEMOGLOBIN 91.5 % (94.0-98.0); BG PCO2 29.5 mmHg (35.0-48.0); BG PEEP (cmH2O) 8.0 cmH2O; BG PH 7.325 (7.350-7.450); BG PO2 78.0 mmHg (83.0-108.0); BG SAMPLE SITE RIGHT RADIAL; BG TOTAL HEMOGLOBIN 9.0 g/dL (13.5-17.5); BG VENT MODE VENT - P/C; BG VENT RATE 28.0 set
[2025-04-19] MEDS: ALBUMIN HUMAN 12.5GM/50ML (25%) IV NR (11:33)
[2025-04-19] MEDS: CALCIUM GLUCONATE 1GM PREMIX 50 ML IV SCH (16:39)
[2025-04-20] VITALS (25 sets, daily range): BP systolic 74–98; BP diastolic 34–66; PULSE 52–101; RESP 9–32; TEMP 37–37.1; O2SAT 72–98
[2025-04-20] MEDS ORDERED: MORPHINE SULFATE 250 MG in DEXT 5% WATER 240 ML IV PRN (02:15)
[2025-04-20] MEDS ORDERED: MIDAZOLAM HCL 2 MG/2 ML VIAL IV PRN (02:15)
[2025-04-20] MEDS ORDERED: MORPHINE SULFATE 2 MG/ML INJ (NOT FOR IM USE) IV PRN (02:15)
[2025-04-20] MEDS: MORPHINE SULFATE 2 MG/ML INJ (NOT FOR IM USE) IV NR (03:23)
[2025-04-20] MEDS: MORPHINE SULFATE 250 MG in DEXT 5% WATER 250 ML IV PRN (03:59)
[2025-04-20 11:12] LABS: BAND% 17.0 % (1.0-6.0); LYMPHOCYTES % MANUAL 4.0 % (20.0-50.0); MONOCYTES % MANUAL 5.0 % (2.0-8.0); NEUTROPHILS % MANUAL 74.0 % (45.0-75.0); NUCLEATED RED BLOOD CELLS 6 /100 WBC
[2025-04-20 11:13] LABS: PLATELET ESTIMATE MARKEDLY DECREASED
[2025-04-20 11:15] LABS: PLATELET 33 x1000/uL (130-400)
== END 2025-04-20 07:26 | DRG 720 ==
LOC: EDBD 10:50 → ER 10:50 → EDBEDREQ 11:07 → 7WST 13:17 → EDBEDREQSVC 13:20 → EDBEDREQTM 13:20 → EDBEDREQ 13:20 → ENRESERV 14:00 → 5EST 04-09 16:15 → CVICU 04-11 11:32
PROVIDERS: ADMIT Family Medicine Adult Medicine; ATTEND Family Medicine Adult Medicine
PROC: 30233N1 Transfusion of Nonautologous Red Blood Cells into Peripheral Vein, Percutaneous Approach (ICD-10-PCS; 2025-04-05)
PROC: 30233K1 Transfusion of Nonautologous Frozen Plasma into Peripheral Vein, Percutaneous Approach (ICD-10-PCS; 2025-04-06)
PROC: 02HV33Z Insertion of Infusion Device into Superior Vena Cava, Percutaneous Approach (ICD-10-PCS; principal; 2025-04-11)
PROC: B548ZZA Ultrasonography of Superior Vena Cava, Guidance (ICD-10-PCS; 2025-04-11)
PROC: 0W9G3ZZ Drainage of Peritoneal Cavity, Percutaneous Approach (ICD-10-PCS; 2025-04-11)
PROC: 5A1955Z Respiratory Ventilation, Greater than 96 Consecutive Hours (ICD-10-PCS; 2025-04-13)
PROC: 0BH17EZ Insertion of Endotracheal Airway into Trachea, Via Natural or Artificial Opening (ICD-10-PCS; 2025-04-13)
PROC: 30233M1 Transfusion of Nonautologous Plasma Cryoprecipitate into Peripheral Vein, Percutaneous Approach (ICD-10-PCS; 2025-04-14)
PROC: 30233R1 Transfusion of Nonautologous Platelets into Peripheral Vein, Percutaneous Approach (ICD-10-PCS; 2025-04-17)
DX: A41.9 Sepsis, unspecified organism (principal); J96.01 Acute respiratory failure with hypoxia; N17.0 Acute kidney failure with tubular necrosis; K76.7 Hepatorenal syndrome; R57.8 Other shock; R65.21 Severe sepsis with septic shock; G93.41 Metabolic encephalopathy; E72.20 Disorder of urea cycle metabolism, unspecified; K70.40 Alcoholic hepatic failure without coma; J18.9 Pneumonia, unspecified organism; K70.31 Alcoholic cirrhosis of liver with ascites; D68.9 Coagulation defect, unspecified; K27.9 Peptic ulcer, site unspecified, unspecified as acute or chronic, without hemorrhage or perforation; E87.1 Hypo-osmolality and hyponatremia; Z66 Do not resuscitate; D50.9 Iron deficiency anemia, unspecified; I12.9 Hypertensive chronic kidney disease with stage 1 through stage 4 chronic kidney disease, or unspecified chronic kidney disease; E88.09 Other disorders of plasma-protein metabolism, not elsewhere classified; R19.7 Diarrhea, unspecified; D69.6 Thrombocytopenia, unspecified; N18.9 Chronic kidney disease, unspecified; E53.8 Deficiency of other specified B group vitamins; D72.821 Monocytosis (symptomatic); K76.82 Hepatic encephalopathy; D63.8 Anemia in other chronic diseases classified elsewhere; E87.4 Mixed disorder of acid-base balance; E83.51 Hypocalcemia; Z60.3 Acculturation difficulty; F10.131 Alcohol abuse with withdrawal delirium; Y90.9 Presence of alcohol in blood, level not specified; E87.8 Other disorders of electrolyte and fluid balance, not elsewhere classified; F10.19 Alcohol abuse with unspecified alcohol-induced disorder; Z68.43 Body mass index [BMI] 50.0-59.9, adult; Z79.899 Other long term (current) drug therapy; I85.11 Secondary esophageal varices with bleeding
CPT/HCPCS: 31720; 36415; 36573; 36600; 49083; 71045; 74018; 74176; 76700; 80048; 80053; 80076; 80202; 80305; 81003; 82105; 82140; 82247; 82270; 82330; 82375; 82533; 82550; 82607; 82728; 82746; 82805; 82962; 83036; 83540; 83550; 83605; 83615; 83735; 83930; 83935; 84100; 84145; 84295; 84300; 84443; 84484; 85014; 85018; 85025; 85027; 85044; 85049; 85384; 86705; 86850; 86900; 86920; 86927; 87015; 87045; 87070; 87106; 87340; 87427; 87449; 87493; 89055; 93005; 94002; 94003; 94070; 94640; 94664; 99291; A4606; C1725; J0456; J0610; J1120; J1265; J1720; J1815; J2003; J2185; J2248; J2270; J2354; J2371; J2405; J2470; J2543; J2765; J3010; J3373; J3430; J3490; J7030; J7040; J7050; J7060; J7070; P9012; P9016; P9017; P9034; P9047